=== PATIENT | female | born 1960 | race Caucasian/White ===

== ENCOUNTER → 2017-12-05 | Outpatient (CLI) | payer BC ==
[~2017-12-05] MED LIST: ADVAIR 250-501 EACH INH; BYDUREON2 MG INJ; CARVEDILOL25 MG PO; FUROSEMIDE40 MG PO; LISINOPRIL2.5 MG PO; LOVAZA1 GM PO; METFORMIN HCL500 MG PO; PANTOPRAZOLE SO40 MG PO; PRAVASTATIN SOD40 MG PO; REGADENOSON 0.4 MG/5 ML SYR IV ONE; SPIRONOLACTONE50 MG PO; VENTOLIN HFA18 GM INH
--- NOTE | 2017-12-05 16:47 | Cardiology Report ---
DATE OF STUDY: December 05, 2017 NUCLEAR GATED MYOCARDIAL PERFUSION SCAN Nuclear gated myocardial perfusion scan performed as per protocol at [facility]. Lexiscan injected 0.4 mg intravenously. Myoview injected 10.7 mCi for resting protocol and 33 mCi for stress protocol. IMPRESSION 1. Attenuation of the anterior wall noted. 2. No evidence of wall motion abnormality. No evidence of ischemia or scar. 3. Left ventricular ejection fraction is 50%. 4. Normal study. Job#: [id number]
== END ==
LOC: NM 08:29
PROVIDERS: ATTEND Internal Medicine Cardiovascular Disease
DX: R07.9 Chest pain, unspecified (principal); I50.9 Heart failure, unspecified; R94.31 Abnormal electrocardiogram [ECG] [EKG]
CPT/HCPCS: 78452; 93017; A9502